=== PATIENT | male | born 1985 | race Caucasian/White ===

== ENCOUNTER 2020-06-04 00:40 | Emergency (ER) | payer MEDICAID ==
[~2020-06-04] VITALS: Ht 167.6 cm; Wt 58.5 kg
[2020-06-04] MEDS ORDERED: ABAC1TAB15 PO (00:48)
[2020-06-04] MEDS ORDERED: RIVA20TA PO (00:48)
[2020-06-04] MEDS ORDERED: SULFAMETH/TRIMETH 800/160 MG TABLET PO ONE (01:15)
[2020-06-04] MEDS ORDERED: SULFAMETH/TRIMETH 800/160 MG TABLET ONE (01:22)
--- NOTE | 2020-06-04 01:30 | NUR ---
wound care done & drsg applied.
--- NOTE | 2020-06-04 01:35 | NUR ---
Patient discharged to home in stable condition. Written and verbal after care instructions given. Patient verbalizes understanding of instructions. Stressed follow up or return to ER for worsening s/s.
[2020-06-04 01:36] VITALS: BP 126/75
== END 2020-06-04 01:37 | disposition home or self-care (01) ==
LOC: ER 00:42
DX: L97.811 Non-pressure chronic ulcer of other part of right lower leg limited to breakdown of skin (principal); F17.210 Nicotine dependence, cigarettes, uncomplicated; G89.29 Other chronic pain; Z86.19 Personal history of other infectious and parasitic diseases; I82.503 Chronic embolism and thrombosis of unspecified deep veins of lower extremity, bilateral; Z79.01 Long term (current) use of anticoagulants
CPT/HCPCS: A4663